=== PATIENT | female | born 1990 | race Caucasian/White ===

== ENCOUNTER → 2019-03-11 11:02 | Outpatient (CLI) | payer OTHER, MEDICAID, SELFPAY | PROVIDERS: PCP Family Medicine | DX: O02.1 Missed abortion (principal) | CPT/HCPCS: 36415; 86850; 86900; 86901 ==

== ENCOUNTER 2019-03-21 09:12 | Day surgery (SDC) | payer OTHER, MEDICAID, SELFPAY ==
[2019-03-19 13:16] VITALS: BMI 23.2
[2019-03-21] VITALS (15 sets, daily range): BP systolic 79–122; BP diastolic 48–67; PULSE 57–700; RESP 11–20; TEMP 36.3–36.8; O2SAT 96–100; BMI 23.2
--- NOTE | 2019-03-21 | PATH_ITS ---
[facility] Accession Number: [id number] . 01 Material submitted: . product of conception - PRODUCTS OF CONCEPTION . 02 Diagnosis: Products of Conception: Products of conception identified. MRV 03/25/2019 1514 Local . 02 Electronically signed: . Janelle Beck MD, Pathologist NPI- [id number] . 01 Gross description: . Received in formalin, labeled products of conception, are multiple fragments of tee rubbery hemorrhagic tissue (5.5 x 3.5 x 1.5 cm in aggregate). No tissue is identified. Entirely submitted in cassettes A1-A4. ([id number]) /MRV 03/23/2019 2232 Local . 02 Pathologist provided ICD-10: O02.1 . 02 CPT . 705468 Performed at: 01 [facility] [address] [id number] MD Mehdi Rico MD Phone: [phone] Performed at: 02 [facility] [address] [place] [id number] MD Cris Davis MD Phone: [phone]
--- NOTE | 2019-03-21 10:15 | PM.PREOP ---
Pre-operative Note Interval Note History & Physical reviewed/Exam performed by Physician: Yes Changes to H&P: No
[2019-03-21] MEDS: MIDAZOLAM 2 MG/2 ML VIAL IV (11:28)
[2019-03-21] MEDS: DOXYCYCLINE 200 MG in SODIUM CHLORIDE 0.9% 250 ML IV (11:30)
--- NOTE | 2019-03-21 11:43 | SUR.OPER ---
Lithotomy on padded OR bed, head on pillow, arms secured on padded arm boards at <90 degrees abduction. Legs secured in padded yellow fins stirrups.
--- NOTE | 2019-03-21 11:58 | PM.OP.1 ---
Operative Date/Time/Diagnoses Date of procedure: 03/21/19 Time of procedure: 11:00 Pre-op diagnosis: incomplete Post-op diagnosis: same Procedure & Clinicians Procedure: suction dilation and curettage Same procedure as scheduled: Yes Indications: incomplete , 10 weeks gestation by dates with multiple confirmatory US Surgeon: Amy Combs Click Yes if Unassisted: Yes Anesthesia Type: Sedation Operative Notes Findings: Approximately 9 week size midline uterus. Cervix already dilated to approximately 8 mm. Normal vulva and vagina. Specimen(s): other (products of conception) Procedure in detail: After the patient was counseled in the office, RhoGAM was administered in the office, and risks, benefits, and alternatives were explained, the patient was taken to the operating room. She was placed in the dorsal lithotomy position and prepped and draped in the usual sterile fashion. Straight cath was used to empty the bladder, and an open-sided speculum inserted into the vagina. The anterior lip of the cervix was grasped with a single-tooth tenaculum, and the cervix gently dilated to 9 mm with the Hegar dilator with ease. An 8 mm suction tip was gently advanced into the uterus, making gentle contact with the fundus. Suction was applied, and the curette rotated with removal of some products of conception. After 3 passes, gentle curettage was performed, and another pass with the suction curette was performed with removal of small amount of blood and no further tissue. The patient's bleeding was mild at the end of the procedure. The tenaculum was removed from the cervix, and gentle pressure applied with sponge stick to achieve hemostasis. The speculum was removed from the vagina, and the patient was transferred to the PACU in stable condition. Complications: none Post-operative Condition: stable Disposition: PACU Plan for aftercare: Patient for discharge home with routine follow-up and precautions.
[2019-03-21] MEDS: LACTATED RINGERS 1,000 ML 100 ML IV (12:19)
[2019-03-21] MEDS: ONDANSETRON 4 MG/2 ML INJ IV (12:41)
[2019-03-21] MEDS: OXYCODONE/ACETAMINOPHEN 5/325 TABLET 1 TAB PO ×2 (12:42→13:28)
[2019-03-21] MEDS: fentaNYL 100 MCG/2 ML INJ IV ×3 (12:44→13:17)
--- NOTE | 2019-03-21 13:06 | SUR.PHASEI ---
1300 Rx given for pelvic cramping, states, It hurts really bad. Grimace, repositioning, able to carry on a conversation. Denies nausea.
--- NOTE | 2019-03-21 13:25 | SUR.PHASEI ---
pt denies suicidal ideation presently, Rx okd by anesthesia. Pain 6/10, improving, tolerable
--- NOTE | 2019-03-21 13:28 | SUR.PHASEI ---
declined snack prior to PO med. 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 Tearful while talking, calm, quiet.
--- NOTE | 2019-03-21 13:49 | SUR.PHASEII ---
's office returned call, states that she is to manage pain alternating tylenol and ibuprofen. Pt and mom informed. reported to Owen Otto RN
== END 2019-03-21 14:09 | disposition home or self-care (01) ==
PROVIDERS: PCP Family Medicine; Visit Provider Obstetrics & Gynecology
PROC: (CPT 58120; principal; 2019-03-21 10:45)
DX: O02.1 Missed abortion (principal); Z3A.10 10 weeks gestation of pregnancy; J45.909 Unspecified asthma, uncomplicated
CPT/HCPCS: 59820; J1100; J2250; J2405; J2704; J3010

== ENCOUNTER → 2019-06-11 10:32 | Outpatient (CLI) | payer OTHER, MEDICAID, SELFPAY ==
[2019-06-11 11:46] LABS: Hemoglobin 14.4 g/dL (12.0-16.0)
[2019-06-11 12:43] LABS: HCG Quantitative /Beta subunit < 2.39 mIU/mL
[2019-06-11 12:58] LABS: TSH w/ Reflex to FT4 0.51 uIU/mL (0.47-4.68)
== END ==
PROVIDERS: PCP Family Medicine; Referring Provider Obstetrics & Gynecology; Visit Provider Obstetrics & Gynecology
DX: N93.9 Abnormal uterine and vaginal bleeding, unspecified (principal)
CPT/HCPCS: 36415; 84443; 84702; 85014; 85018

== ENCOUNTER 2019-10-04 19:47 | Emergency (ER) | payer OTHER, MEDICAID, SELFPAY ==
[2019-10-04 20:05] VITALS: BP 146/63; PULSE 62; RESP 18; TEMP 37.1; O2SAT 98; BMI 25.4
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
== END 2019-10-04 20:40 | disposition home or self-care (01) ==
PROVIDERS: Emergency Provider Nurse Practitioner; PCP Family Medicine
DX: L02.31 Cutaneous abscess of buttock (principal)
CPT/HCPCS: 87070; 87075; 87186; 87205; 99281; 99282

== ENCOUNTER → 2019-10-31 08:53 | Outpatient (CLI) | payer OTHER, MEDICAID, SELFPAY ==
[2019-11-01 21:04] LABS: COVID19 Sendout Not Detected (Not Detect)
== END ==
PROVIDERS: PCP Family Medicine; Visit Provider Nurse Practitioner
DX: Z01.812 Encounter for preprocedural laboratory examination (principal)
CPT/HCPCS: 87635

== ENCOUNTER 2019-11-03 08:55 | Day surgery (SDC) | payer OTHER, MEDICAID, SELFPAY ==
[2019-10-27 10:52] VITALS: BMI 25.3
[2019-11-03] VITALS (7 sets, daily range): BP systolic 100–129; BP diastolic 46–71; PULSE 51–88; RESP 10–16; TEMP 35.7–36.6; O2SAT 97–100; BMI 26.4
--- NOTE | 2019-11-03 | PATH_ITS ---
[facility] Accession Number: [id number] . 01 Material submitted: . endometrium - ENDOMETRIAL CURETTINGS . 02 Diagnosis: Endometrial Curettings: Portions of weakly proliferative endometrium with regions of stromal breakdown and features of shedding; negative for glandular hyperplasia, cytologic atypia, or malignancy. [facility] 11/05/2019 1052 Local . 02 Electronically signed: . Janelle Beck MD, Pathologist NPI- [id number] . 01 Gross description: . ENDOMETRIAL CURETTINGS: Received in formalin are multiple fragment(s) of tee, soft tissue measuring 1.5 x 0.9 x 0.2 cm in aggregate submitted entirely in 1 cassette(s) /QBJ 11/04/2019 0728 Local . 02 Pathologist provided ICD-10: N93.9 . 02 CPT . 900140 Specimen Comment: A duplicate report has been generated due to demographic updates. Performed at: 01 [facility] [address], [place], [place] [id number] MD Mehdi Rico MD Phone: [phone] Performed at: 02 [facility] [address] [place], [place] [id number] MD Cris Davis MD Phone: [phone]
[2019-11-03] MEDS: LACTATED RINGERS 1,000 ML 100 ML IV (09:30)
--- NOTE | 2019-11-03 10:46 | PM.PREOP ---
Pre-operative Note COVID-19 COVID-19 status: Negative Result date/Date tested (Pos, Neg/Pending): 10/31/19 Interval Note History & Physical reviewed/Exam performed by Physician: Yes Changes to H&P: Yes H&P completed within 30 days and has changed as indicated here:: This patient is admitted for a diagnostic hysteroscopy, initially planned for abnormal uterine bleeding after a miscarriage in early 03/2019. She reports that the abnormal uterine bleeding has stopped and that her cycles have normalized, though she still has intermittent cramping and pain with deep penetration. We discussed that the hysteroscopy is to look for retained products of conception after her miscarriage, and discussed the rest of the differential for pelvic pain. The risks and benefits of hysteroscopy were re-discussed, and informed consent obtained. All questions were answered, and postoperative care reviewed.
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
--- NOTE | 2019-11-03 11:32 | SUR.OPER ---
Lithotomy on padded OR bed, head on pillow, arms secured on padded arm boards at <90 degrees abduction. Legs secured in padded yellow fins stirrups.
--- NOTE | 2019-11-03 11:44 | PM.OP.1 ---
Operative Date/Time/Diagnoses Date of procedure: 11/03/19 Time of procedure: 11:44 Pre-op diagnosis: pelvic pain, history of miscarriage Post-op diagnosis: same Procedure & Clinicians Procedure: diagnostic hysteroscopy, D&C Same procedure as scheduled: Yes Indications: abnormal uterine bleeding and cramping after miscarriage Surgeon: Amy Combs Click Yes if Unassisted: Yes Anesthesia Type: MAC +/- Operative Notes Findings: Normal vulva, vagina, and cervix. Normal endometrial cavity with no retained POCs, polyps, or fibroids. Closure Type: not applicable Specimen(s): other (endometrial curettings) Estimated Blood Loss (mL): 0 Procedure in detail: After informed consent was obtained, the patient was taken to the operating room where IV sedation was obtained. She was prepped and draped in the normal sterile fashion, and a straight catheterization performed. An open sided sterile speculum was placed in the vagina, and the anterior lip of the cervix grasped with a single toothed tenaculum. Hegar dilaters were used with gentle pressure to dilate the cervix to 7mm without difficulty, and the diagnostic hysteroscope was inserted, using normal saline as a distention medium. The endometrial cavity was regular in shape, size, and contour, with easily visualized ostia bilaterally and an expected amount of normal appearing endometrial tissue. The hysteroscope was removed, and a very gentle curettage was performed with 1 pass on each wall to obtain a small amount of tissue for pathology. The tenaculum was then removed from the cervix, with good hemostasis noted. The speculum was removed from the vagina, and the patient tolerated the procedure well and was taken to the PACU in stable condition. UOP 200ccs clear urine with straight cath IVF 650ccs saline Complications: none Post-operative Condition: stable Disposition: PACU Plan for aftercare: Routine postoperative care and discharge home
[2019-11-03] MEDS: OXYCODONE IR 5 MG TABLET PO (12:07)
== END 2019-11-03 12:35 | disposition home or self-care (01) ==
PROVIDERS: PCP Nurse Practitioner Family; Referring Provider Obstetrics & Gynecology; Visit Provider Obstetrics & Gynecology
PROC: 0UDB8ZZ Extraction of Endometrium, Via Natural or Artificial Opening Endoscopic (ICD-10-PCS; CPT 58558; principal; 2019-11-03 10:15)
DX: N93.9 Abnormal uterine and vaginal bleeding, unspecified (principal)
CPT/HCPCS: 58558; J1100; J2250; J2405; J2704; J3010

== ENCOUNTER 2020-02-16 10:02 | Emergency (ER) | payer OTHER, MEDICAID, SELFPAY ==
[2020-02-16 10:19] VITALS: BP 129/62; PULSE 78; RESP 16; TEMP 36.9; O2SAT 100; BMI 26.4
--- NOTE | 2020-02-16 10:32 | PC.NURSE ---
Pt unknown LMP. Believes she is 8-10 weeks
--- NOTE | 2020-02-16 10:51 | DI.US.S_ITS ---
PROCEDURE: US OB <= 14 WEEKS FETUS INDICATIONS: BLEEDING OUTSIDE/PRIOR DATING DATA: Last menstrual period (LMP): Not available. LMP-based estimated date of delivery ([facility]): Not available First dating scan (date and location): 02/16/20, this examination. Estimated date of delivery ([facility]) from first dating scan: 10/18/20 TECHNIQUE: Real-time scanning was performed of the fetus and maternal pelvic organs, with image documentation. Endovaginal scanning was also performed to better visualize the fetus and maternal ovaries. COMPARISON: [facility], US, US OB <= 14 WEEKS FETUS, 02/28/2019, 8:38. FINDINGS: Embryo: And embryos not seen but there is what appears to be a gestational sac with mean sac diameter 0.3 cm which correlates with a gestational age of 5 weeks 0 days, +/-7 days. Measurement variability in dating: +/- 4 weeks by LMP, +/- 7 days by mean sac diameter (use before 6 weeks gestation if crown-rump length not able to be measured), +/- 5 days by crown-rump length (up to 8 weeks 6 days gestation), +/- 7 days by crown-rump length (up to 13 weeks 6 days gestation). Maternal organs: Ovaries appear normal considering gestational status. Limited images through the kidneys demonstrate no hydronephrosis. Normal considering gestational status IMPRESSION: A viable intrauterine gestation has not yet been established. There is a sac-like structure within the endometrial space with a mean sac diameter that would correlate with a gestational age of 5 weeks 0 days, +/-7 days. Assuming viable gestation the delivery date would be projected to be centered on 10/18/20. Follow-up 1st trimester OB ultrasound in 7-10 days may be warranted to establish viable . Also, correlation with quantitative beta HCG likely is warranted. Please note that the current findings do not entirely exclude the possibility of ectopic . Dictated by: Ross Corado M.D. on 02/16/2020 at 11:08 Approved by: Ross Corado M.D. on 02/16/2020 at 11:11
[2020-02-16 11:02] LABS: Bacteria Urine Moderate (10-30); Culture Indicated Urine Cult Not Indicated; Mucus Urine 1+ (Negative); RBC Urine 30-100/HPF (0-5/HPF); Squamous Epithelial Cell Urine 1-5 /HPF (0-5/HPF); WBC Urine 0-1/HPF (0-5/HPF)
[2020-02-16 11:25] LABS: Add Manual Diff / Slide Review NO; Basophils Absolute Auto 0 /uL (0-100); Basophils Percent Auto 0.3 % (0-2); Eosinophils Absolute Auto 0 /uL (0-450); Eosinophils Percent Auto 0.2 % (2-4); Hematocrit 37.3 % (36-46); Hemoglobin 12.6 g/dL (12.0-16.0); Lymphocytes Absolute Auto 1700 /uL (1100-4500); Lymphocytes Percent Auto 25.3 % (25-40); Mean Corpuscular HGB Conc 33.7 % (30-36); Mean Corpuscular Hemoglobin 30.3 PG (26-34); Mean Corpuscular Volume 89.9 fL (80-100); Monocytes Absolute Auto 500 /uL (0-900); Monocytes Percent Auto 7.7 % (3-14); Neutrophils Absolute Auto 4400 /uL (1500-7000); Neutrophils Percent Auto 66.5 % (50-75); Platelet Count 280 X10^3/uL (150-400); Red Blood Cell Count 4.15 X10^6/uL (4.0-5.2); Red Cell Distribution Width 12.3 % (11.6-14.8); White Blood Cell Count 6.7 X10^3/uL (4.5-11.0)
[2020-02-16 11:37] LABS: Alanine Aminotransferase 20 IU/L (<35); Albumin 4.7 g/dL (3.5-5.0); Albumin Globulin Ratio 1.4 (1.0-2.8); Alkaline Phosphatase 59 U/L (38-126); Aspartate Aminotransferase 24 IU/L (14-36); Bilirubin Total 0.6 mg/dL (0.2-1.3); Blood Urea Nitrogen 9 mg/dL (7-17); Calcium 9.3 mg/dL (8.4-10.2); Carbon Dioxide 25 mmol/L (22-32); Chloride 106 mmol/L (98-107); Estimated Glomerular Filt Rate > 60.0 mL/min (>60); Globulin 3.4 g/dL (1.7-4.1); Glucose 88 mg/dL (70-100); HEMOLYSIS < 15 (0-50); Potassium 3.8 mmol/L (3.4-5.1); Sodium 137 mmol/L (137-145); Total Protein 8.1 g/dL (6.3-8.2)
[2020-02-16 11:54] LABS: HCG Quantitative /Beta subunit 734.4 mIU/mL
--- NOTE | 2020-02-16 12:46 | ED.PREGNANCY ---
HPI - <Maxwell Snell [facility] - Last Filed: 02/16/20 12:59> General Chief complaint: Vaginal Bleeding Stated complaint: 'might be having a miscarriage' Time Seen by Provider: 02/16/20 12:13 Source: patient Mode of arrival: Ambulatory Limitations: no limitations History of Present Illness HPI Narrative: This is a 29-year-old female, former smoker, with past medical history significant for spontaneous miscarriage at 12 week EGA last year with D&C procedure, depression, asthma presents to ED with friend with chief complain of vaginal bleeding that started this morning on her way to 1st OB ultrasound test. Reports she had 2 positive urine test 5 days ago. Patient reports moderate low abdominal cramping and rates as 4 to 5/10. Patient reports small amount of cautious of bleeding started this morning and thinks it has stopped at this point. Patient denies chest pain, breathing difficulty, or dizziness or urinary symptoms. She is unsure of LMP but thinks might have not had in December or January. Patient had received RhoGAM IM injection in the past. Patient's OB doctor is Dr. Combs. Patient : Yes Related Data Home Medications Medication Instructions Recorded Confirmed albuterol sulfate [Proventil HFA] 0.09 mg IH Q4HP PRN 10/27/19 11/03/19 PNV,calcium 66-[id number]-uysqh acid tab 02/16/20 [ Vitamin Plus Low Iron] Allergies Allergy/AdvReac Type Severity Reaction Status Date / Time latex [LATEX] Allergy Mild SWELLING Verified 02/16/20 10:23 TIDE DETERGENT Allergy Mild RASH Uncoded 10/31/19 08:47 Review of Systems <Maxwell Snell [facility] - Last Filed: 02/16/20 12:59> Review of Systems Narrative: General: Denies fever, chills, fatigue, malaise, sweats. HEENT: Denies sinus pain, ear pain, sore throat, difficulty swallowing, dizziness. Respiratory: Denies dyspnea, cough, wheezing, hemoptysis, sputum. Cardiovascular: Denies chest pain, palpitations, orthopnea, edema. Gastrointestinal: Denies nausea, vomiting, abdominal pain, diarrhea, constipation, melena. /CREATIVE SPECIALIST: See HPI Musculoskeletal: Denies weakness, joint pain or bony pain. Skin: Denies rash, skin lesions, or other. Neurologic: Denies weakness, headache, numbness, change in speech, confusion, seizures, incoordination. Psychiatric: No concerning psychosocial issues. Reports increased stress in life. 12-point review of systems is negative except for those stated above. PMFSH - <ROSS Sagastume - Last Filed: 02/16/20 12:59> Past Medical History Additional medical history: Depression, asthma, abnormal uterine bleeding, spontaneous AB at 12 week EGA Surgical history: Reports other (D&C) TUBE BALANCER history: Reports Spontaneous and Other (Elective AB) Patient : Yes Exam <ROSS Sagastume - Last Filed: 02/16/20 12:59> Narrative Exam Narrative: General appearance: well developed, well nourished, in no acute distress. Head: normocephalic, atraumatic, no scalp lesions, non-tender. ENT: Hearing grossly intact. Airway patent. Neck/Thyroid: neck supple, full range of motion, no visible masses or meningeal signs. No JVD, non-tender without lymphadenopathy. Skin: no suspicious rashes, lesions over visible areas. Warm and dry and appropriate color for ethnicity. Heart: no clubbing, no cyanosis, no edema. S1 and S2 normal. RRR w/o murmurs, clicks, or bruits. Lungs: Breathing even and unlabored. No stridor. No accessory muscles used. Able to speak in full sentences. Chest: normal shape and expansion. Abdomen: non-obese, non-distended. Neurologic: alert and oriented. Cognitive exam, OXYACETYLENE WELDER and PNS grossly intact on informal exam. Psych: good eye contact, normal affect. Initial Vital Signs Initial Vital Signs: Vital Signs Temperature 98.5 F 02/16/20 10:19 Pulse Rate 78 02/16/20 10:19 Respiratory Rate 16 02/16/20 10:19 Blood Pressure 129/62 02/16/20 10:19 Pulse Oximetry 100 02/16/20 10:19 <Yeny Gomez DO - Last Filed: 02/16/20 18:58> Initial Vital Signs Initial Vital Signs: Vital Signs Temperature 98.5 F 02/16/20 10:19 Pulse Rate 78 02/16/20 10:19 Respiratory Rate 16 02/16/20 10:19 Blood Pressure 129/62 02/16/20 10:19 Pulse Oximetry 100 02/16/20 10:19 Scores <[facility] - Last Filed: 02/16/20 12:59> GCS [place] coma scale eye opening: Spontaneous [place] coma scale verbal response: Orientated [place] coma scale motor response: Obey commands [place] coma scale total score: 15 Course <[facility] - Last Filed: 02/16/20 12:59> Orders Ordered: ED Orders 02/16/20 10:28 Urine Microscopic Stat 02/16/20 10:51 US OB <= 14 weeks fetus Stat 02/16/20 11:16 ABO RH Type Stat Complete Blood Count AUTO DIFF Stat Comprehensive Metabolic Panel Stat HCG Quantitative /Beta subunit Stat Discontinued Medications Acetaminophen (Tylenol) 650 mg PO NOW ONE Stop: 02/16/20 12:25 Last Admin: 02/16/20 12:52 Dose: 650 mg Documented by: BIANCA Rho Immune Globulin (Hyperrho S-D) 1,500 unit IM NOW ONE Stop: 02/16/20 12:25 Last Admin: 02/16/20 12:52 Dose: 1,500 unit Documented by: BIANCA Vital Signs Vital signs: Vital Signs - 8 hr 02/16/20 12:55 Pulse Rate 88 Respiratory Rate 14 Blood Pressure 118/72 Pulse Oximetry 99 <Yeny Gmoez DO - Last Filed: 02/16/20 18:58> Orders Ordered: ED Orders 02/16/20 10:28 Urine Microscopic Stat 02/16/20 10:51 US OB <= 14 weeks fetus Stat 02/16/20 11:16 ABO RH Type Stat Complete Blood Count AUTO DIFF Stat Comprehensive Metabolic Panel Stat HCG Quantitative /Beta subunit Stat Discontinued Medications Acetaminophen (Tylenol) 650 mg PO NOW ONE Stop: 02/16/20 12:25 Last Admin: 02/16/20 12:52 Dose: 650 mg Documented by: BIANCA Rho Immune Globulin (Hyperrho S-D) 1,500 unit IM NOW ONE Stop: 02/16/20 12:25 Last Admin: 02/16/20 12:52 Dose: 1,500 unit Documented by: BIANCA Vital Signs Vital signs: Vital Signs - 8 hr 02/16/20 12:55 Pulse Rate 88 Respiratory Rate 14 Blood Pressure 118/72 Pulse Oximetry 99 MDM - OB/Uterine Contractions <NATALIA SagastumeP - Last Filed: 02/16/20 12:59> Differential Diagnosis Differential diagnosis: Likely other (vaginal bleeding in , threaten AB, miscarriage) Medical Records Attestation: I reviewed the patient's medical records. Lab Data Attestation: I reviewed the patient's lab results. Result diagrams: 02/16/20 11:16 02/16/20 11:16 Labs: Lab Results 02/16/20 02/16/20 02/16/20 Range/Units 10:28 11:16 11:16 WBC 6.7 (4.5-11.0) X10^3/uL RBC 4.15 (4.0-5.2) X10^6/uL Hgb 12.6 (12.0-16.0) g/dL Hct 37.3 (36-46) % MCV 89.9 (80-100) fL MCH 30.3 (26-34) PG MCHC 33.7 (30-36) % RDW 12.3 (11.6-14.8) % Plt Count 280 (150-400) X10^3/uL Neut % (Auto) 66.5 (50-75) % Lymph % (Auto) 25.3 (25-40) % [place] % (Auto) 7.7 (3-14) % Eos % (Auto) 0.2 L (2-4) % Baso % (Auto) 0.3 (0-2) % Neut # (Auto) 4400 (5500-7194) /uL Lymph # (Auto) 1700 (2576-5526) /uL [place] # (Auto) 500 (0-900) /uL Eos # (Auto) 0 (0-450) /uL Baso # (Auto) 0 (0-100) /uL Sodium 137 (137-145) mmol/L Potassium 3.8 (3.4-5.1) mmol/L Chloride 106 (98-107) mmol/L Carbon Dioxide 25 (22-32) mmol/L BUN 9 (7-17) mg/dL Creatinine 0.45 L (0.52-1.04) mg/dL Estimated GFR > 60.0 (>60) mL/min BUN/Creatinine Ratio 20.0 (6-22) Glucose 88 (70-100) mg/dL Calcium 9.3 (8.4-10.2) mg/dL Total Bilirubin 0.6 (0.2-1.3) mg/dL AST 24 (14-36) IU/L ALT 20 (<35) IU/L Alkaline Phosphatase 59 (38-126) U/L Total Protein 8.1 (6.3-8.2) g/dL Albumin 4.7 (3.5-5.0) g/dL Globulin 3.4 (1.7-4.1) g/dL Albumin/Globulin Ratio 1.4 (1.0-2.8) HCG, Quant 734.4 mIU/mL Urine RBC 30-100/hpf H (0-5/HPF) Urine WBC 0-1/hpf (0-5/HPF) Ur Squamous Epith Cells 1-5 /hpf (0-5/HPF) Urine Bacteria Moderate (10-30) H (None) Urine Mucus 1+ H (Negative) Ur Culture Indicated? Cult not indicated Blood Type 02/16/20 Range/Units 11:16 WBC (4.5-11.0) X10^3/uL RBC (4.0-5.2) X10^6/uL Hgb (12.0-16.0) g/dL Hct (36-46) % MCV (80-100) fL MCH (26-34) PG MCHC (30-36) % RDW (11.6-14.8) % Plt Count (150-400) X10^3/uL Neut % (Auto) (50-75) % Lymph % (Auto) (25-40) % [place] % (Auto) (3-14) % Eos % (Auto) (2-4) % Baso % (Auto) (0-2) % Neut # (Auto) (3017-0539) /uL Lymph # (Auto) (0322-2478) /uL [place] # (Auto) (0-900) /uL Eos # (Auto) (0-450) /uL Baso # (Auto) (0-100) /uL Sodium (137-145) mmol/L Potassium (3.4-5.1) mmol/L Chloride (98-107) mmol/L Carbon Dioxide (22-32) mmol/L BUN (7-17) mg/dL Creatinine (0.52-1.04) mg/dL Estimated GFR (>60) mL/min BUN/Creatinine Ratio (6-22) Glucose (70-100) mg/dL Calcium (8.4-10.2) mg/dL Total Bilirubin (0.2-1.3) mg/dL AST (14-36) IU/L ALT (<35) IU/L Alkaline Phosphatase (38-126) U/L Total Protein (6.3-8.2) g/dL Albumin (3.5-5.0) g/dL Globulin (1.7-4.1) g/dL Albumin/Globulin Ratio (1.0-2.8) HCG, Quant mIU/mL Urine RBC (0-5/HPF) Urine WBC (0-5/HPF) Ur Squamous Epith Cells (0-5/HPF) Urine Bacteria (None) Urine Mucus (Negative) Ur Culture Indicated? Blood Type A Negative Urine Dip Bedside Urine Glucose Negative Bedside Urine Bilirubin - Negative Bedside Urine Ketone - Negative Urine Specific [place] 1.020 Bedside Urine Occult Blood +++ Bedside Urine pH 6.0 Bedside Urine Protein - Negative Bedside Urine Urobilinogen - Negative Bedside Urine Nitrite - Negative Bedside Urine Leukocytes - Negative Esterase Imaging Data US - OB: Radiologist's Impression: [place] [address] Ultrasound Report Signed Patient: Tia Solano [facility]#: [id number] : 1990Acct:[id number] Age/Sex: 29 / FDate of Service: 02/16/20 Loc: ED Accession Number: [id number] Procedure: US OB <= 14 weeks fetus Ordering Provider: Yeny Gomez D.O. PROCEDURE: US OB <= 14 WEEKS FETUS INDICATIONS: BLEEDING OUTSIDE/PRIOR DATING DATA: Last menstrual period (LMP): Not available. LMP-based estimated date of delivery ([facility]): Not available First dating scan (date and location): 02/16/20, this examination. Estimated date of delivery ([facility]) from first dating scan: 10/18/20 TECHNIQUE: Real-time scanning was performed of the fetus and maternal pelvic organs, with image documentation. Endovaginal scanning was also performed to better visualize the fetus and maternal ovaries. COMPARISON: [facility], US, US OB <= 14 WEEKS FETUS, 02/28/2019, 8:38. FINDINGS: Embryo: And embryos not seen but there is what appears to be a gestational sac with mean sac diameter 0.3 cm which correlates with a gestational age of 5 weeks 0 days, +/-7 days. Measurement variability in dating: +/- 4 weeks by LMP, +/- 7 days by mean sac diameter (use before 6 weeks gestation if crown-rump length not able to be measured), +/- 5 days by crown-rump length (up to 8 weeks 6 days gestation), +/- 7 days by crown-rump length (up to 13 weeks 6 days gestation). Maternal organs: Ovaries appear normal considering gestational status. Limited images through the kidneys demonstrate no hydronephrosis. Normal considering gestational status IMPRESSION: A viable intrauterine gestation has not yet been established. There is a sac-like structure within the endometrial space with a mean sac diameter that would correlate with a gestational age of 5 weeks 0 days, +/-7 days. Assuming viable gestation the delivery date would be projected to be centered on 10/18/20. Follow-up 1st trimester OB ultrasound in 7-10 days may be warranted to establish viable . Also, correlation with quantitative beta HCG likely is warranted. Please note that the current findings do not entirely exclude the possibility of ectopic . Dictated by: Ross Corado M.D. on 02/16/2020 at 11:08 Approved by: Ross Corado M.D. on 02/16/2020 at 11:11 MDM Narrative Medical decision making narrative: This is a 29 old female who presents to ED with small gush of vaginal bleeding started this morning which stopped at this time and had 2 positive home test this past week. Unsure of last LMP but thinks she did not have menses in December or January. with 1 spont AB and 1 elective AB. Last spontaneous AB last year at 12 weeks EGA which required D&C. H&H is stable. She is hemodynamically stable. Chemistry test is unremarkable. Blood type is A-. Ultrasound test shows gestational sac within the endometrial space that occur relate with a gestational age of 5 weeks 0 days +/-7 days but no embryo visualized as of yet. Beta quantitative hCG today is 734. Patient received RhoGAM injection before leaving ED. patient advised to monitor vaginal bleeding and to follow-up with Dr. Combs in 2-3 days for possible repeat blood test on quantitative hCG and repeat ultrasound in 7-14 days. Strict return precautions discussed with patient and advised pelvic rest. Patient verbalized understanding and agreement with the treatment plan. <Yeny Gomez, - Last Filed: 02/16/20 18:58> Lab Data Labs: Lab Results 02/16/20 02/16/20 02/16/20 Range/Units 10:28 11:16 11:16 WBC 6.7 (4.5-11.0) X10^3/uL RBC 4.15 (4.0-5.2) X10^6/uL Hgb 12.6 (12.0-16.0) g/dL Hct 37.3 (36-46) % MCV 89.9 (80-100) fL MCH 30.3 (26-34) PG MCHC 33.7 (30-36) % RDW 12.3 (11.6-14.8) % Plt Count 280 (150-400) X10^3/uL Neut % (Auto) 66.5 (50-75) % Lymph % (Auto) 25.3 (25-40) % [place] % (Auto) 7.7 (3-14) % Eos % (Auto) 0.2 L (2-4) % Baso % (Auto) 0.3 (0-2) % Neut # (Auto) 4400 (7741-5883) /uL Lymph # (Auto) 1700 (2372-7560) /uL [place] # (Auto) 500 (0-900) /uL Eos # (Auto) 0 (0-450) /uL Baso # (Auto) 0 (0-100) /uL Sodium 137 (137-145) mmol/L Potassium 3.8 (3.4-5.1) mmol/L Chloride 106 (98-107) mmol/L Carbon Dioxide 25 (22-32) mmol/L BUN 9 (7-17) mg/dL Creatinine 0.45 L (0.52-1.04) mg/dL Estimated GFR > 60.0 (>60) mL/min BUN/Creatinine Ratio 20.0 (6-22) Glucose 88 (70-100) mg/dL Calcium 9.3 (8.4-10.2) mg/dL Total Bilirubin 0.6 (0.2-1.3) mg/dL AST 24 (14-36) IU/L ALT 20 (<35) IU/L Alkaline Phosphatase 59 (38-126) U/L Total Protein 8.1 (6.3-8.2) g/dL Albumin 4.7 (3.5-5.0) g/dL Globulin 3.4 (1.7-4.1) g/dL Albumin/Globulin Ratio 1.4 (1.0-2.8) HCG, Quant 734.4 mIU/mL Urine RBC 30-100/hpf H (0-5/HPF) Urine WBC 0-1/hpf (0-5/HPF) Ur Squamous Epith Cells 1-5 /hpf (0-5/HPF) Urine Bacteria Moderate (10-30) H (None) Urine Mucus 1+ H (Negative) Ur Culture Indicated? Cult not indicated Blood Type 02/16/20 Range/Units 11:16 WBC (4.5-11.0) X10^3/uL RBC (4.0-5.2) X10^6/uL Hgb (12.0-16.0) g/dL Hct (36-46) % MCV (80-100) fL MCH (26-34) PG MCHC (30-36) % RDW (11.6-14.8) % Plt Count (150-400) X10^3/uL Neut % (Auto) (50-75) % Lymph % (Auto) (25-40) % [place] % (Auto) (3-14) % Eos % (Auto) (2-4) % Baso % (Auto) (0-2) % Neut # (Auto) (7001-5347) /uL Lymph # (Auto) (5156-7090) /uL [place] # (Auto) (0-900) /uL Eos # (Auto) (0-450) /uL Baso # (Auto) (0-100) /uL Sodium (137-145) mmol/L Potassium (3.4-5.1) mmol/L Chloride (98-107) mmol/L Carbon Dioxide (22-32) mmol/L BUN (7-17) mg/dL Creatinine (0.52-1.04) mg/dL Estimated GFR (>60) mL/min BUN/Creatinine Ratio (6-22) Glucose (70-100) mg/dL Calcium (8.4-10.2) mg/dL Total Bilirubin (0.2-1.3) mg/dL AST (14-36) IU/L ALT (<35) IU/L Alkaline Phosphatase (38-126) U/L Total Protein (6.3-8.2) g/dL Albumin (3.5-5.0) g/dL Globulin (1.7-4.1) g/dL Albumin/Globulin Ratio (1.0-2.8) HCG, Quant mIU/mL Urine RBC (0-5/HPF) Urine WBC (0-5/HPF) Ur Squamous Epith Cells (0-5/HPF) Urine Bacteria (None) Urine Mucus (Negative) Ur Culture Indicated? Blood Type A Negative Urine Dip Bedside Urine Glucose Negative Bedside Urine Bilirubin - Negative Bedside Urine Ketone - Negative Urine Specific [place] 1.020 Bedside Urine Occult Blood +++ Bedside Urine pH 6.0 Bedside Urine Protein - Negative Bedside Urine Urobilinogen - Negative Bedside Urine Nitrite - Negative Bedside Urine Leukocytes - Negative Esterase Discharge Plan Departure Patient Disposition: Home Clinical Impression: Vaginal bleeding in patient after first trimester Discharge Date/Time: 02/16/20 13:00 Instructions: DI for Vaginal Bleeding During Activity Restrictions/Additional Instructions: You have been diagnosed with [vaginal bleeding during 1st trimester. BhCG level is 734.4 and ultrasound test shows a gestational sac but no embryo was seen as yet. You were received Rhogam IM injection today.]. What to do: *Take your medications as directed. You can take [id number] Tylenol as needed for discomfort. *Follow up with your primary care provider/ Dr. Combs in 2-3 days, call for an appointment. You probably require to get blood test done at that time for BhCG and in a week or so for repeat US test. Let them know you were seen in the ED and that we asked you to be seen in follow up. *Return to ED if you have any new, worsening, or concerning symptoms, such as [chest pain, breathing difficulty, unable to tolerate fluids, dizziness, heavy vaginal bleeding that you require to change pad for every hour for 3 hour or any acute concerns. Prescriptions: No Action albuterol sulfate [Proventil HFA] 90 MCG/PUFF HFA aerosol inhaler 0.09 mg IH Q4HP PRN (Reason: Shortness Of Breath) RF: 0 Vitamin Plus Low Iron 27 mg iron- 1 mg tablet RF: 0 Referrals: [place],MD Amy [Physician] - Manuela Ferrer ARNP [Primary Care Provider] -
[2020-02-16] MEDS: ACETAMINOPHEN 325 MG TABLET 650 MG PO (12:52)
[2020-02-16] MEDS: RHO(D) IMMUNE GLOBULIN 1,500 UNIT SYRINGE 1500 UNIT IM (12:52)
[2020-02-16 12:55] VITALS: BP 118/72; PULSE 88; RESP 14; O2SAT 99
== END 2020-02-16 13:00 | disposition home or self-care (01) ==
PROVIDERS: Emergency Medicine; Emergency Provider Nurse Practitioner Family; PCP Nurse Practitioner Family
DX: O46.91 Antepartum hemorrhage, unspecified, first trimester (principal)
CPT/HCPCS: 36415; 76801; 76817; 80053; 81003; 81015; 84702; 85025; 86900; 86901; 96372; 99284; J2790

== ENCOUNTER → 2020-02-26 11:15 | Outpatient (CLI) | payer OTHER, MEDICAID, SELFPAY ==
[2020-02-26 13:42] LABS: HCG Quantitative /Beta subunit 3710.8 mIU/mL
== END ==
PROVIDERS: PCP Nurse Practitioner Family; Referring Provider Obstetrics & Gynecology; Visit Provider Obstetrics & Gynecology
DX: O20.9 Hemorrhage in early pregnancy, unspecified (principal)
CPT/HCPCS: 36415; 84702

== ENCOUNTER → 2020-02-27 08:05 | Outpatient (CLI) | payer OTHER, MEDICAID, SELFPAY ==
--- NOTE | 2020-02-27 08:06 | DI.US.S_ITS ---
PROCEDURE: US OB <= 14 WEEKS FETUS INDICATIONS: BLEEDING OUTSIDE/PRIOR DATING DATA: Last menstrual period (LMP): Unknown. LMP-based estimated date of delivery ([facility]): Unknown. First dating scan (date and location): 02/16/2020. Estimated date of delivery ([facility]) from first dating scan: 10/18/2020. TECHNIQUE: Real-time scanning was performed of the fetus and maternal pelvic organs, with image documentation. Endovaginal scanning was also performed to better visualize the fetus and maternal ovaries. COMPARISON: [facility], , US OB <= 14 WEEKS FETUS, 02/26/2020, 11:03. FINDINGS: Embryo: Irregular appearing debris-filled intrauterine gestational sac is noted. No pole or cardiac activity is detected. No yolk sac is seen. Mean gestational sac diameter measures 2.2 cm with estimated gestational age of 7 weeks, 1 day. Measurement variability in dating: +/- 4 weeks by LMP, +/- 7 days by mean sac diameter (use before 6 weeks gestation if crown-rump length not able to be measured), +/- 5 days by crown-rump length (up to 8 weeks 6 days gestation), +/- 7 days by crown-rump length (up to 13 weeks 6 days gestation). Maternal organs: Ovaries are visualized. Corpus luteal cyst in left ovary is again seen, unchanged from previous study and measures 2.5 x 1.4 x 1.8 cm. Limited images through the kidneys demonstrate no hydronephrosis. IMPRESSION: 1. Finding is suggestive of spontaneous . No pole or cardiac activity is detected. 2. Stable corpus luteal cyst in left ovary. Dictated by: Matti Avalos M.D. on 02/27/2020 at 10:21 Approved by: Matti Avalos M.D. on 02/27/2020 at 10:24
== END ==
PROVIDERS: PCP Nurse Practitioner Family; Referring Provider Nurse Practitioner Family; Visit Provider Obstetrics & Gynecology
DX: O20.9 Hemorrhage in early pregnancy, unspecified (principal); Z3A.01 Less than 8 weeks gestation of pregnancy
CPT/HCPCS: 76801; 76817

== ENCOUNTER → 2020-02-28 11:57 | Outpatient (CLI) | payer OTHER, MEDICAID, SELFPAY ==
[2020-02-28 12:26] LABS: Add Manual Diff / Slide Review NO; Basophils Absolute Auto 0 /uL (0-100); Basophils Percent Auto 0.3 % (0-2); Eosinophils Absolute Auto 100 /uL (0-450); Eosinophils Percent Auto 0.7 % (2-4); Hematocrit 34.6 % (36-46); Hemoglobin 11.8 g/dL (12.0-16.0); Lymphocytes Absolute Auto 1900 /uL (1100-4500); Lymphocytes Percent Auto 22.1 % (25-40); Mean Corpuscular Hemoglobin 30.5 PG (26-34); Mean Corpuscular Volume 89.6 fL (80-100); Monocytes Absolute Auto 900 /uL (0-900); Monocytes Percent Auto 9.9 % (3-14); Neutrophils Absolute Auto 5800 /uL (1500-7000); Platelet Count 285 X10^3/uL (150-400); Red Blood Cell Count 3.86 X10^6/uL (4.0-5.2); Red Cell Distribution Width 12.7 % (11.6-14.8); White Blood Cell Count 8.7 X10^3/uL (4.5-11.0)
[2020-02-28 12:36] LABS: Alanine Aminotransferase 18 IU/L (<35); Albumin 4.6 g/dL (3.5-5.0); Albumin Globulin Ratio 1.6 (1.0-2.8); Alkaline Phosphatase 53 U/L (38-126); Aspartate Aminotransferase 20 IU/L (14-36); BUN Creatinine Ratio 31.1 (6-22); Bilirubin Total 0.3 mg/dL (0.2-1.3); Blood Urea Nitrogen 14 mg/dL (7-17); Calcium 9.5 mg/dL (8.4-10.2); Carbon Dioxide 25 mmol/L (22-32); Chloride 105 mmol/L (98-107); Estimated Glomerular Filt Rate > 60.0 mL/min (>60); Globulin 2.8 g/dL (1.7-4.1); Glucose 107 mg/dL (70-100); HEMOLYSIS < 15 (0-50); Potassium 3.5 mmol/L (3.4-5.1); Sodium 137 mmol/L (137-145); Total Protein 7.4 g/dL (6.3-8.2)
== END ==
PROVIDERS: PCP Nurse Practitioner Family; Referring Provider Obstetrics & Gynecology; Visit Provider Obstetrics & Gynecology
DX: O36.80X0 Pregnancy with inconclusive fetal viability, not applicable or unspecified (principal)
CPT/HCPCS: 36415; 80053; 84702; 85025

== ENCOUNTER → 2020-03-05 12:02 | Outpatient (CLI) | payer OTHER, MEDICAID, SELFPAY ==
[2020-03-05 13:29] LABS: Free T4, Direct Thyroxine 0.95 ng/dL (0.78-2.19); HCG Quantitative /Beta subunit 196.5 mIU/mL
[2020-03-05 13:43] LABS: Thyroid Stimulating Hormone 1.27 uIU/mL (0.47-4.68)
== END ==
PROVIDERS: PCP Nurse Practitioner Family; Referring Provider Obstetrics & Gynecology; Visit Provider Obstetrics & Gynecology
DX: O03.9 Complete or unspecified spontaneous abortion without complication (principal)
CPT/HCPCS: 36415; 84439; 84443; 84702

== ENCOUNTER 2021-02-01 18:06 | Emergency (ER) | payer OTHER, MEDICAID, SELFPAY ==
[2021-02-01] VITALS (11 sets, daily range): BP systolic 113–130; BP diastolic 61–81; PULSE 66–91; RESP 15–24; TEMP 36.9; O2SAT 96–100; BMI 26.6
[2021-02-01 18:24] LABS: Appearance Urine UA CLEAR; Bilirubin Urine UA NEGATIVE (NEGATIVE); Color Urine UA YELLOW; Glucose Urine UA NEGATIVE (Negative); Ketones Urine UA 1+ (NEGATIVE); Leukocyte Esterase Urine UA NEGATIVE (NEGATIVE); Nitrite Urine UA NEGATIVE (Negative); Occult Blood Urine UA NEGATIVE (Negative); Protein Urine UA NEGATIVE (Negative); Specific Gravity Urine UA <=1.005 (1.000-1.035); Urobilinogen Urine UA 0.2 E.U./dL (0.2)
--- NOTE | 2021-02-01 18:25 | DI.CT.S_ITS ---
PROCEDURE: CT ABDOMEN PELVIS W CON INDICATIONS: RLQ, RUQ pain, ? appy TECHNIQUE: After the administration of oral and IV contrast, axial sections were acquired from the lung bases to the pubic symphysis. Coronal and sagittal reformats were performed. For radiation dose reduction, the following was used: automated exposure control, adjustment of mA and/or kV according to patient size. COMPARISON: [facility], CT, ABDOMEN/PELVIS WITH CONTRAST, 03/14/2015, 18:27. FINDINGS: Image quality: Excellent. Lung bases: Unremarkable. Heart: No significant findings. ABDOMEN: Liver: Unremarkable. Gallbladder: Unremarkable. Biliary ducts: Unremarkable. Pancreas: Unremarkable. Spleen: Unremarkable. Adrenal Glands: Unremarkable. Kidneys and Ureters: Unremarkable. Stomach and Bowel: Stomach, small bowel loops, and colon are normal in caliber and wall thickness. The appendix is normal in appearance. Peritoneum: There is a small amount of free fluid in the pelvis which appears within physiologic limits. No free air. Ventral Wall: No hernia. Abdominal Nodes: No retroperitoneal or mesenteric adenopathy by size criteria. Vessels: Aorta and inferior vena cava are normal in size. PELVIS: Pelvic Organs: There is a peripherally enhancing cyst in the right ovary measuring up to 2.7 cm. The right ovary is prominent size. Uterus and left ovary are within normal size limits. Bladder: Unremarkable. Pelvic Nodes: No enlarged lymph nodes. Miscellaneous: No inguinal hernias are seen. Bones: Unremarkable. IMPRESSION: 1. No evidence of appendicitis. 2. Peripherally enhancing cyst in the right ovary likely representing a physiologic cyst. If clinically indicated, further evaluation may be obtained with a pelvic ultrasound. Dictated by: Mehdi Yadav M.D. on 02/01/2021 at 20:31 Approved by: Mehdi Yadav M.D. on 02/01/2021 at 20:36
--- NOTE | 2021-02-01 18:26 | DI.US.S_ITS ---
PROCEDURE: US ABDOMEN LIMITED INDICATIONS: RUQ PAIN TECHNIQUE: Real-time focused scanning was performed of the abdomen, with image documentation. COMPARISON: None. FINDINGS: The liver demonstrates increased parenchymal echogenicity with coarse sonographic echotexture consistent with fatty infiltration. There is an ill-defined hypoechoic region of focal sparing along the gallbladder fossa. Gallbladder demonstrates no gallstones, wall thickening, or pericholecystic fluid No intra or extrahepatic biliary ductal dilatation. The visualized common bile duct measures up to 6 mm. The visualized pancreas appears unremarkable sonographically. Limited evaluation in the right lower quadrant performed. The appendix was not discretely visualized sonographically. IMPRESSION: 1. Increased hepatic echogenicity compatible with steatosis. 2. No evidence of cholelithiasis or cholecystitis. 3. No biliary ductal dilatation. Dictated by: Mehdi Yadav M.D. on 02/01/2021 at 19:26 Approved by: Mehdi Yadav M.D. on 02/01/2021 at 19:27
[2021-02-01 18:34] LABS: Bacteria Urine None Seen; RBC Urine 0-1/HPF (0-5/HPF); Squamous Epithelial Cell Urine 1-5 /HPF (0-5/HPF); WBC Urine 0-1/HPF (0-5/HPF)
[2021-02-01 18:35] LABS: Culture Indicated Urine Cult Not Indicated
[2021-02-01] MEDS: KETOROLAC 30 MG/ML VIAL 15 MG IV (18:39)
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
[2021-02-01 19:21] LABS: Alanine Aminotransferase 102 IU/L (<35); Albumin Globulin Ratio 1.5 (1.0-2.8); Alkaline Phosphatase 80 U/L (38-126); Aspartate Aminotransferase 73 IU/L (14-36); Bilirubin Total 0.6 mg/dL (0.2-1.3); Blood Urea Nitrogen 8 mg/dL (7-17); Carbon Dioxide 25 mmol/L (22-32); Chloride 104 mmol/L (98-107); Estimated Glomerular Filt Rate > 60.0 mL/min (>60); Globulin 3.3 g/dL (1.7-4.1); Glucose 88 mg/dL (70-100); HEMOLYSIS < 15 (0-50); Lipase 78 U/L (23-300); Potassium 3.7 mmol/L (3.4-5.1); Sodium 139 mmol/L (137-145); Total Protein 8.3 g/dL (6.3-8.2)
[2021-02-01 19:42] LABS: Add Manual Diff / Slide Review NO; Basophils Absolute Auto 0 /uL (0-100); Basophils Percent Auto 0.3 % (0-2); Eosinophils Absolute Auto 100 /uL (0-450); Eosinophils Percent Auto 0.8 % (2-4); Hematocrit 40.2 % (36-46); Hemoglobin 13.4 g/dL (12.0-16.0); Lymphocytes Absolute Auto 2500 /uL (1100-4500); Mean Corpuscular HGB Conc 33.4 % (30-36); Mean Corpuscular Hemoglobin 30.2 PG (26-34); Mean Corpuscular Volume 90.5 fL (80-100); Monocytes Absolute Auto 500 /uL (0-900); Monocytes Percent Auto 7.5 % (3-14); Neutrophils Absolute Auto 4200 /uL (1500-7000); Neutrophils Percent Auto 57.4 % (50-75); Platelet Count 294 X10^3/uL (150-400); Red Blood Cell Count 4.44 X10^6/uL (4.0-5.2); Red Cell Distribution Width 12.9 % (11.6-14.8); White Blood Cell Count 7.3 X10^3/uL (4.5-11.0)
[2021-02-01 19:58] LABS: Pregnancy Test Urine Negative (Negative)
[2021-02-01] MEDS: MORPHINE 4 MG/ML INJ IV (20:43)
[2021-02-01] MEDS: metroNIDAZOLE 500 MG TABLET PO (21:09)
[2021-02-01] MEDS: DOXYCYCLINE HYCLATE 100 MG TABLET PO (21:09)
[2021-02-01] MEDS: cefTRIAXone 1,000 MG VIAL 500 MG IM (21:10)
[2021-02-01] MEDS: LIDOCAINE 1% 20 ML 2.1 ML INJ (21:10)
[2021-02-01 22:15] LABS: Urine N gonorrhoeae NOT DETECTED
[2021-02-01 22:32] LABS: Urine Chlamydia NOT DETECTED
== END 2021-02-01 21:22 | disposition home or self-care (01) ==
PROVIDERS: Student in an Organized Health Care Education/Training Program; Emergency Provider Emergency Medicine; PCP Nurse Practitioner Family
DX: N73.0 Acute parametritis and pelvic cellulitis (principal)
CPT/HCPCS: 74177; 76705; 80053; 81001; 81025; 83690; 85025; 87491; 87591; 93005; 93010; 96372; 96374; 96375; 99284; J0696; J1885; J2270; Q9967

== ENCOUNTER → 2021-05-31 08:46 | Outpatient (CLI) | payer OTHER, MEDICAID, SELFPAY ==
--- NOTE | 2021-05-31 | DI.RAD.S_ITS ---
PROCEDURE: XR LUMBAR SPINE 2-3V INDICATIONS: LOW BACK PAIN TECHNIQUE: 3 views of the lumbar spine were acquired. COMPARISON: None. FINDINGS: Bones: 5 [id number] vertebrae are present. There is normal bony alignment. No vertebral body compression fractures. No suspicious bony lesions. Soft tissues: Overlying bowel gas pattern is normal. No suspicious soft tissue calcifications. IMPRESSION: Unremarkable lumbar spine radiographs Approved by: Clay Duarte M.D. on 05/31/2021 at 9:35
== END ==
PROVIDERS: PCP Nurse Practitioner Family; Referring Provider Nurse Practitioner Family; Visit Provider Nurse Practitioner Family
DX: M54.50 Low back pain, unspecified (principal); G89.11 Acute pain due to trauma
CPT/HCPCS: 72100

== ENCOUNTER → 2021-09-08 15:07 | Outpatient (CLI) | payer OTHER, MEDICAID, SELFPAY ==
[2021-09-08 16:04] LABS: HCG Quantitative /Beta subunit 2079.4 mIU/mL
== END ==
PROVIDERS: PCP Nurse Practitioner Family; Referring Provider Nurse Practitioner Family; Visit Provider Nurse Practitioner Family
DX: Z32.00 Encounter for pregnancy test, result unknown (principal)
CPT/HCPCS: 36415; 84702

== ENCOUNTER → 2021-10-06 08:04 | Outpatient (CLI) | payer OTHER, MEDICAID, SELFPAY ==
--- NOTE | 2021-10-06 08:05 | DI.US.S_ITS ---
PROCEDURE: US OB <= 14 WEEKS FETUS INDICATIONS: DATING AND VIABILITY OUTSIDE/PRIOR DATING DATA: Last menstrual period (LMP): 08/02/2021. LMP-based estimated date of delivery ([facility]): 05/09/2022. First dating scan (date and location): 10/06/2021. Estimated date of delivery ([facility]) from first dating scan: 05/13/2022. The calculations are made using the ultrasound generated [facility] of 05/13/2022. TECHNIQUE: Real-time scanning was performed of the fetus and maternal pelvic organs, with image documentation. Endovaginal scanning was also performed to better visualize the fetus and maternal ovaries. COMPARISON: None. FINDINGS: Embryo: Mean gestational sac diameter 4.5 centimeters. [place]-rump length 2.1 centimeters. Yolk sac noted. Heart rate: 175 Maternal organs: Ovaries normal. Right corpus luteum cyst noted. IMPRESSION: Single living intrauterine gestation with estimated ultrasound age of 8 weeks 5 days. We strive to produce accurate, complete, and clear reports of imaging services. To assist us in improving patient care, this report was composed using standard report templates and voice recognition software. Therefore, it may contain abnormal punctuation, insertions and/or omissions. Occasional wrong-word or sound-alike substitutions may occur. Though we review the report and make efforts to correct it, we do recommend that the report be read carefully in proper context to recognize any text inaccuracies. Dictated by: Tommie Maldonado M.D. on 10/06/2021 at 9:25 Approved by: Tommie Maldonado M.D. on 10/06/2021 at 9:27
== END ==
PROVIDERS: PCP Nurse Practitioner Family; Referring Provider Obstetrics & Gynecology; Visit Provider Obstetrics & Gynecology
DX: Z34.81 Encounter for supervision of other normal pregnancy, first trimester (principal); Z3A.08 8 weeks gestation of pregnancy
CPT/HCPCS: 76801; 76817

== ENCOUNTER → 2021-10-28 14:10 | Outpatient (CLI) | payer OTHER, MEDICAID, SELFPAY ==
[2021-10-28 14:33] LABS: Appearance Urine UA SL CLOUDY; Bilirubin Urine UA NEGATIVE (NEGATIVE); Color Urine UA YELLOW; Glucose Urine UA NEGATIVE (Negative); Ketones Urine UA NEGATIVE (NEGATIVE); Leukocyte Esterase Urine UA NEGATIVE (NEGATIVE); Nitrite Urine UA NEGATIVE (Negative); Occult Blood Urine UA NEGATIVE (Negative); Protein Urine UA NEGATIVE (Negative); Specific Gravity Urine UA 1.015 (1.000-1.035); Urobilinogen Urine UA 0.2 E.U./dL (0.2)
[2021-10-28 15:30] LABS: Add Manual Diff / Slide Review NO; Basophils Absolute Auto 0 /uL (0-100); Basophils Percent Auto 0.3 % (0-2); Eosinophils Absolute Auto 100 /uL (0-450); Eosinophils Percent Auto 0.5 % (2-4); Hematocrit 34.8 % (36-46); Hemoglobin 12.3 g/dL (12.0-16.0); Lymphocytes Absolute Auto 1600 /uL (1100-4500); Lymphocytes Percent Auto 16.8 % (25-40); Mean Corpuscular HGB Conc 35.3 % (30-36); Mean Corpuscular Hemoglobin 30.2 PG (26-34); Mean Corpuscular Volume 85.6 fL (80-100); Monocytes Absolute Auto 800 /uL (0-900); Neutrophils Absolute Auto 7100 /uL (1500-7000); Neutrophils Percent Auto 74.4 % (50-75); Platelet Count 270 X10^3/uL (150-400); Red Blood Cell Count 4.06 X10^6/uL (4.0-5.2); Red Cell Distribution Width 12.5 % (11.6-14.8); White Blood Cell Count 9.6 X10^3/uL (4.5-11.0)
[2021-10-28 16:47] LABS: HIV 1 & 2 Ab/Ag 4th Gen Combo NEGATIVE (NEGATIVE); Hep C Virus Ab w/Reflex Quant NEGATIVE s/c (NEGATIVE); Hepatitis B Surface Antigen NEGATIVE s/c (NEGATIVE)
[2021-10-28 17:03] LABS: Rubella Antibody IgG 19.3 IU/mL (>15)
[2021-10-29 07:40] LABS: RPR Screen Non Reactive (Non Reactive)
[2021-10-29 15:25] LABS: Varicella IgG Antibody 1055 index (Immune >165)
== END ==
PROVIDERS: PCP Nurse Practitioner Family; Referring Provider Obstetrics & Gynecology; Visit Provider Obstetrics & Gynecology
DX: Z34.81 Encounter for supervision of other normal pregnancy, first trimester (principal); Z3A.12 12 weeks gestation of pregnancy
CPT/HCPCS: 36415; 80055; 81003; 86787; 86803; 86850; 86900; 86901; 87086; 87389

== ENCOUNTER → 2021-11-18 15:00 | Outpatient (CLI) | payer OTHER, MEDICAID, SELFPAY ==
[2021-11-22 20:40] LABS: AFP, Serum 52.1 ng/mL (.); Calc Gestational Age Ultrasound (.); Estriol, Free 0.54 ng/mL (.); Inhibin A, Dimeric 162.92 pg/mL (.); Inhibin A, MoM 0.91 (.); Maternal Ethnicity Caucasian (.); Maternal Weight 128 lbs (.); Number of Fetuses No (.); OSBR Risk 1 IN 3048 (.); Results Report (.); Test Results *Screen Positive* (.); hCG, MoM 0.28 (.); hCG, Serum 15149 mIU/mL (.)
== END ==
PROVIDERS: PCP Nurse Practitioner Family; Referring Provider Obstetrics & Gynecology; Visit Provider Obstetrics & Gynecology
DX: Z34.02 Encounter for supervision of normal first pregnancy, second trimester (principal)
CPT/HCPCS: 36415; 82105; 82677; 84702; 86336

== ENCOUNTER → 2022-02-10 09:30 | Outpatient (CLI) | payer OTHER, MEDICAID, SELFPAY ==
[2022-02-10 12:44] LABS: Hemoglobin 10.6 g/dL (12.0-16.0)
[2022-02-10 13:02] LABS: GTT (PREG) 1 Hour PP 50gm Dose 107 mg/dL (76-139)
== END ==
PROVIDERS: PCP Nurse Practitioner Family; Referring Provider Obstetrics & Gynecology; Visit Provider Obstetrics & Gynecology
DX: O26.899 Other specified pregnancy related conditions, unspecified trimester (principal); Z67.91 Unspecified blood type, Rh negative; Z3A.26 26 weeks gestation of pregnancy
CPT/HCPCS: 36415; 82950; 85014; 85018; 86850

== ENCOUNTER → 2022-04-13 08:56 | Outpatient (CLI) | payer OTHER, MEDICAID, SELFPAY ==
--- NOTE | 2022-04-13 08:57 | DI.US.S_ITS ---
PROCEDURE: US OB LIMITED INDICATIONS: SIZE LESS THAN DATES OUTSIDE/PRIOR DATING DATA: Last menstrual period (LMP): 08/02/2021. LMP-based estimated date of delivery ([facility]): 05/09/2022. First dating scan (date and location): 10/06/2021. Estimated date of delivery ([facility]) from first dating scan: 05/13/2022. The calculations are made using the study generated [facility] of 05/13/2022. TECHNIQUE: Real-time scanning was performed of the fetus, with image documentation and biometric measurements. Biophysical profile was also obtained. Endovaginal scanning: Not indicated COMPARISON: [facility], , OB <= 14 WEEKS FETUS, 10/06/2021, 8:19. FINDINGS: General: A single living intrauterine gestation is present. Presentation: Vertex. Placenta: Placental position is anterior, without previa. Amniotic fluid index: 11.8 cm, normal range is 5-24 cm. Single deepest vertical pocket is 5.9 cm. heart rate: 139 beats per minute. Maternal cervical canal: Not well seen on the current study. biometrics: Biparietal diameter: 8.4 cm, 33 weeks, 6 days. Head circumference: 33.0 cm, 37 weeks, 4 days. Abdominal circumference: 31.2 cm, 35 weeks, 1 day. Femur length: 6.5 cm, 33 weeks, 2 days. Clinically estimated gestational age: 35 weeks, 5 days Composite gestational age from present scan: 35 weeks, 0 day. Estimated weight and percentile: 2508 g, 24%. Four-chamber heart, stomach, bilateral kidneys and urinary bladder are visualized and are within normal limits. Previously noted uterine fibroid is not well seen on this study. IMPRESSION: 1. Single live intrauterine gestation with fetus in vertex presentation. heart rate is 139 beats per minute. Normal amount of amniotic fluid. Estimated weight is at 24%. We strive to produce accurate, complete, and clear reports of imaging services. To assist us in improving patient care, this report was composed using standard report templates and voice recognition software. Therefore, it may contain abnormal punctuation, insertions and/or omissions. Occasional wrong-word or sound-alike substitutions may occur. Though we review the report and make efforts to correct it, we do recommend that the report be read carefully in proper context to recognize any text inaccuracies. Dictated by: Matti Avalos M.D. on 04/13/2022 at 9:49 Approved by: Matti Avalos M.D. on 04/13/2022 at 9:58
== END ==
PROVIDERS: PCP Nurse Practitioner Family; Referring Provider Obstetrics & Gynecology; Visit Provider Obstetrics & Gynecology
DX: O26.843 Uterine size-date discrepancy, third trimester (principal); Z3A.35 35 weeks gestation of pregnancy
CPT/HCPCS: 76815; 87653

== ENCOUNTER → 2022-04-13 12:09 | Outpatient (CLI) | payer OTHER, MEDICAID, SELFPAY ==
[2022-04-14 13:47] LABS: Strep Grp B PCR NEG for Grp B Strep
== END ==
PROVIDERS: PCP Nurse Practitioner Family; Visit Provider Obstetrics & Gynecology
DX: Z34.83 Encounter for supervision of other normal pregnancy, third trimester (principal); Z3A.36 36 weeks gestation of pregnancy
CPT/HCPCS: 87653

== ENCOUNTER 2022-04-23 01:07 | Inpatient (IN) | payer OTHER, MEDICAID, SELFPAY ==
[2022-04-23] MEDS: OXYTOCIN 10 UNIT/ML VIAL (01:40)
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
--- NOTE | 2022-04-23 02:18 | PM.OBPRVD ---
Labor & Delivery Delivery date: 04/23/22 Delivery monitor: none Route of delivery: L&D Laceration Description: None Estimated blood loss (mL): 100 Anesthesia Type: None Narrative: Delivery Note 31 yo G6 now P3 began ctx yesterday at 6 am. They became significantly stronger last evening. She came by helicopter and was anterior lip on arrival. She had SROM / clear. She then delivered a vigorous female OA over intact perineum. Baby was placed on mother's abdomen (with relatively short cord) for drying and stimulation. Cord was clamped after intentional delay - FOB cut. Cord blood was collected. Large intact placenta with 3 VC delivered with gentle cord traction. Apgars 8/9. EBL 100 cc. Parents happy to see Nela. Plan for aftercare: Routine care (Rhogam workup; admit labs sent after delivery.)
[2022-04-23 02:37] LABS: Add Manual Diff / Slide Review NO; Basophils Absolute Auto 0 /uL (0-100); Basophils Percent Auto 0.2 % (0-2); Eosinophils Absolute Auto 0 /uL (0-450); Eosinophils Percent Auto 0.3 % (2-4); Hematocrit 38.2 % (36-46); Hemoglobin 12.6 g/dL (12.0-16.0); Lymphocytes Absolute Auto 1700 /uL (1100-4500); Lymphocytes Percent Auto 12.2 % (25-40); Mean Corpuscular HGB Conc 32.9 % (30-36); Mean Corpuscular Hemoglobin 28.6 PG (26-34); Mean Corpuscular Volume 86.8 fL (80-100); Monocytes Absolute Auto 800 /uL (0-900); Monocytes Percent Auto 5.7 % (3-14); Neutrophils Absolute Auto 11400 /uL (1500-7000); Neutrophils Percent Auto 81.6 % (50-75); Platelet Count 320 X10^3/uL (150-400); Red Cell Distribution Width 13.6 % (11.6-14.8)
[2022-04-23 02:49] LABS: COVID19 -Nasal RAPID Negative (Negative)
[2022-04-23] MEDS: ACETAMINOPHEN 325 MG TABLET 650 MG PO ×4 (03:05→20:50)
[2022-04-23] MEDS: IBUPROFEN 600 MG TABLET PO ×3 (03:05→19:55)
[2022-04-23 03:14] VITALS: BP 127/69
[2022-04-23 10:30] VITALS: TEMP 36.9
--- NOTE | 2022-04-23 12:25 | P.PNOB_ITS ---
Subjective - OB Subjective Patient comments: no complaints [place] baby status: doing well [place] feeding status: exclusively breast feeding Date Patient Seen: 04/23/22 Time Patient Seen: 12:26 Interval history: Pecipitous delivery after arrival by helicopter. Now with normal lochia, nursing successfully Hoping for early discharge (lives on [place]) Exam Vital Signs (past 8 hours): 118/71, 83, 97.8, 16 Narrative Exam Narrative: FF (U-1), scant lochia Const Orientation: alert and oriented x3 Objective Labs Result Diagrams: 04/23/22 02:20 Labs: Laboratory Results - last 24 hr Initial CBC was 1 hr 04/23/22 04/23/22 04/23/22 02:20 02:20 02:20 WBC 14.0 H RBC 4.40 Hgb 12.6 Hct 38.2 MCV 86.8 MCH 28.6 MCHC 32.9 RDW 13.6 Plt Count 320 Neut % (Auto) 81.6 H Lymph % (Auto) 12.2 L [place] % (Auto) 5.7 Eos % (Auto) 0.3 L Baso % (Auto) 0.2 Neut # (Auto) 04791 H Lymph # (Auto) 1700 [place] # (Auto) 800 Eos # (Auto) 0 Baso # (Auto) 0 SARS-CoV-2 (PCR) Negative Blood Type A Negative Antibody Screen Negative Maternal Bleed Negative Assessment & Plan Assessment and Plan (1) (spontaneous vaginal delivery): Start date: 04/23/22 Status: Acute Plan day: 0 plan OB: routine care Time Spent With Patient Time: Total time spent is greater than 50% in coordination of care (as documented) at patient's floor/unit and/or counseling patient: Time with patient: less than 15 minutes
[2022-04-23] MEDS: CALCIUM CARBONATE 500 MG TAB PO ×2 (15:30→19:13)
--- NOTE | 2022-04-24 00:58 | PM.OBDS.1 ---
Discharge Providers Provider Date of admission: 04/23/22 01:07 Discharge Date: 04/24/22 Primary care physician: ROSS Kwong Consults: 04/24/22 02:23 Consult to Nurse Behavioral Health Care Routine Comment: Discharge provider: Luiza Chapman MD Summary Hospital Course Diagnoses: s/p 04/23/2022 Hospital Course: Pt admitted after arriving via helicopter - at 9.5 cm dilated. Quickly went to complete and delivered a vigorous female. course unremarkable with normal VS, light lochia,successful . Rhogam prior to discharge. Peripartum Data Delivery Method: Natural Vaginal Laceration Description: None complications: none Discharge Diagnosis (1) (spontaneous vaginal delivery): Status: Acute Status at Discharge Cognitive/behavioral status at discharge: oriented Functional status at discharge: independent ambulation Overall status at discharge: patient is progressing back to baseline Time Spent with Patient Time attestation: Total time spent providing and/or coordinating discharge services: Time spent: Less than 30 minutes Specific discharge activities: Pelvic rest for 6 weeks Time spent discussing smoking cessation with patient: 3 to 10 minutes Objective Labs Result Diagrams: 04/23/22 02:20 Labs: Laboratory Results - last 24 hr Today H/H - 30/10 04/23/22 04/23/22 04/23/22 02:20 02:20 02:20 WBC 14.0 H RBC 4.40 Hgb 12.6 Hct 38.2 MCV 86.8 MCH 28.6 MCHC 32.9 RDW 13.6 Plt Count 320 Neut % (Auto) 81.6 H Lymph % (Auto) 12.2 L [place] % (Auto) 5.7 Eos % (Auto) 0.3 L Baso % (Auto) 0.2 Neut # (Auto) 34327 H Lymph # (Auto) 1700 [place] # (Auto) 800 Eos # (Auto) 0 Baso # (Auto) 0 SARS-CoV-2 (PCR) Negative Blood Type A Negative Antibody Screen Negative Maternal Bleed Negative Exam Vital Signs (past 8 hours): 124/67, 56, 98.1 Narrative Exam Narrative: Fundus firm, lochia scant Const General: cooperative Extrem General: pedal edema (trace) Psych Judgment: judgment good Discharge Plan Discharge Plan Patient Disposition: Home Provider Discharge Comment: desires early discharge Discharge orders & Medications Prescriptions: Continued omeprazole 20 mg capsule,delayed release(DR/EC) 20 mg PO BID Qty: 60 12RF albuterol sulfate [Proventil HFA] 90 MCG/PUFF HFA aerosol inhaler 0.09 mg IH Q4HP PRN (Reason: Shortness Of Breath) Label Comments: uses PRN Vitamin Plus Low Iron 27 mg iron- 1 mg tablet PO DAILY Follow up/Referrals: Manuela Ferrer ARNP [Primary Care Provider] - Diet/Activity/Treatments Diet: Diet as Tolerated Activity: Pelvic rest x 6 weeks Visit Report/Discharge Packet Instructions: DI for Labor and Delivery, Vaginal Stand Alone Forms: Patient Portal/API Discharge Data Primary Care Provider: Manuela Ferrer
[2022-04-24] MEDS: IBUPROFEN 600 MG TABLET PO (03:25)
[2022-04-24] MEDS: ACETAMINOPHEN 325 MG TABLET 650 MG PO (03:25)
[2022-04-24] MEDS: CALCIUM CARBONATE 500 MG TAB PO ×2 (03:27→08:30)
[2022-04-24] MEDS: DOCUSATE 100 MG CAPSULE PO (08:30)
[2022-04-24] MEDS: PRENATAL VIT,CALC/IRON/FOLIC 1 TABLET 1 TAB PO (08:30)
[2022-04-24] MEDS: RHO(D) IMMUNE GLOBULIN 1,500 UNIT SYRINGE 1500 UNIT IM (08:31)
== END 2022-04-24 09:00 | disposition home or self-care (01) | DRG 560 ==
PROVIDERS: Admitting Provider Specialist; PCP Nurse Practitioner Family; Referring Provider Specialist; Visit Provider Obstetrics & Gynecology
DX: O80 Encounter for full-term uncomplicated delivery (principal); Z3A.37 37 weeks gestation of pregnancy; Z37.0 Single live birth; Z20.822 Contact with and (suspected) exposure to COVID-19
CPT/HCPCS: 59050; 59409; 85025; 85461; 86850; 86900; 86901; 87635; C9803; G0379; J2590; J2790

== ENCOUNTER → 2025-02-06 11:56 | Outpatient (CLI) | payer OTHER, SELFPAY ==
[2025-02-10 19:39] LABS: Gest Age on Col Date 22.7 weeks (.); OSBR Risk 1IN 267 (.)
== END ==
PROVIDERS: Referring Provider Obstetrics & Gynecology; Visit Provider Obstetrics & Gynecology
DX: Z34.82 Encounter for supervision of other normal pregnancy, second trimester (principal); Z3A.22 22 weeks gestation of pregnancy
CPT/HCPCS: 36415; 82105

== ENCOUNTER → 2025-03-23 13:58 | Outpatient (CLI) | payer OTHER, SELFPAY ==
[2025-03-23 14:54] LABS: Hematocrit 31.1 % (36-46); Hemoglobin 10.8 g/dL (12.0-16.0)
[2025-03-23 15:17] LABS: HEMOLYSIS < 15 (0-50); Iron 46 ug/dL (37-170)
[2025-03-23 15:48] LABS: Percent Iron Saturation 5 % (15-50); Total Iron Binding Capacity 844 ug/dL (265-497)
[2025-03-23 20:36] LABS: Transferrin 614 mg/dL (206-381)
== END ==
PROVIDERS: Obstetrics & Gynecology; Referring Provider Emergency Medicine; Visit Provider Emergency Medicine
DX: O26.899 Other specified pregnancy related conditions, unspecified trimester (principal); Z3A.26 26 weeks gestation of pregnancy; Z67.91 Unspecified blood type, Rh negative; Z86.2 Personal history of diseases of the blood and blood-forming organs and certain disorders involving the immune mechanism
CPT/HCPCS: 36415; 83540; 83550; 85014; 85018; 86850